=== PATIENT | male | born 1940 | race Two or more races ===

== ENCOUNTER 2022-09-04 13:59 | Inpatient (IN) | payer OTHER ==
[~2022-09-04] VITALS: Ht 172.7 cm; Wt 90.0 kg
[2022-09-04 20:00] VITALS: BP 105/66
[2022-09-04] MEDS ORDERED: MORPHINE SULFATE INJ 2 MG/ml SYRG IV PRN (21:15)
[2022-09-04] MEDS ORDERED: ONDANSETRON HCL 4 MG/2 ML VIAL IV PRN (21:15)
[2022-09-04] MEDS ORDERED: HYDROcodone-ACET 5/325MG TAB PO PRN (21:15)
[2022-09-04] MEDS ORDERED: ACETAMINOPHEN 325 MG TAB PO PRN (21:15)
[2022-09-04 22:00] VITALS: BP 105/66
[2022-09-04 22:35] LABS: INR 1.02 (0.9-1.15)
[2022-09-04] MEDS: SODIUM CHLORIDE 0.9% 1,000 ML IV SCH (23:35)
[2022-09-05 05:00] VITALS: BP 135/63
[2022-09-05 05:27] LABS: Basophils # (auto) 0 10 ^3/uL (0-0.2); Basophils % (auto) 0.3 % (0.0-2.0); Eosinophils # (auto) 0.1 10 ^3/uL (0-0.8); Eosinophils % (auto) 1.8 % (0.0-7.0); Hematocrit 37.2 % (41.0-53.0); Hemoglobin 12.3 g/dL (13.5-17.5); Lymphocytes # (auto) 0.6 10 ^3/uL (0.4-5.4); Lymphocytes % (auto) 8.4 % (10.0-50.0); Mean Corpuscular Hemoglobin 27.5 pg (28.0-32.0); Mean Corpuscular Hgb Conc. 33.2 g/dL (32.0-36.0); Mean Corpuscular Volume 82.8 fL (80.0-100.0); Monocytes # (auto) 0.6 10 ^3/uL (0-1.3); Monocytes % (auto) 8.2 % (0.0-12.0); Neutrophils # (auto) 6.1 10 ^3/uL (1.6-8.6); Neutrophils % (auto) 81.3 % (37.0-80.0); Nucleated Red Blood Cells % 0.1 %; Red Blood Cells 4.49 10^6/uL (4.5-5.90); Red Cell Distribution Width 13.7 % (11.8-14.3); White Blood Cell 7.5 10^3/uL (4.4-10.8)
[2022-09-05 05:46] LABS: BUN/Creatinine Ratio 18.2 (10.0-20.0); Calcium 8.1 mg/dL (8.5-10.1); Potassium 3.5 mmol/L (3.5-5.1)
[2022-09-05] MEDS: SODIUM CHLORIDE 0.9% 1,000 ML IV SCH ×2 (08:09→17:51)
[2022-09-05 08:10] VITALS: BP 143/87
[2022-09-05 08:12] VITALS: BP 135/63
[2022-09-05 12:10] VITALS: BP 165/75
[2022-09-05 16:05] VITALS: BP 164/79
[2022-09-05 22:00] VITALS: BP 135/66
[2022-09-06] VITALS (14 sets, daily range): BP systolic 140–177; BP diastolic 68–85
[2022-09-06] MEDS: SODIUM CHLORIDE 0.9% 1,000 ML IV SCH ×3 (00:38→22:24)
[2022-09-06 05:25] LABS: Basophils # (auto) 0 10 ^3/uL (0-0.2); Basophils % (auto) 0.3 % (0.0-2.0); Eosinophils # (auto) 0.2 10 ^3/uL (0-0.8); Eosinophils % (auto) 2.6 % (0.0-7.0); Hematocrit 35.8 % (41.0-53.0); Lymphocytes # (auto) 0.7 10 ^3/uL (0.4-5.4); Lymphocytes % (auto) 10.4 % (10.0-50.0); Mean Corpuscular Hemoglobin 27.5 pg (28.0-32.0); Mean Corpuscular Hgb Conc. 33.5 g/dL (32.0-36.0); Mean Corpuscular Volume 82.1 fL (80.0-100.0); Monocytes # (auto) 0.8 10 ^3/uL (0-1.3); Monocytes % (auto) 11.7 % (0.0-12.0); Neutrophils # (auto) 5.4 10 ^3/uL (1.6-8.6); Red Blood Cells 4.36 10^6/uL (4.5-5.90); White Blood Cell 7.2 10^3/uL (4.4-10.8)
[2022-09-06 05:39] LABS: Potassium 3.5 mmol/L (3.5-5.1)
[2022-09-06 05:43] LABS: BUN/Creatinine Ratio 17.1 (10.0-20.0); Calcium 7.9 mg/dL (8.5-10.1)
[2022-09-06 07:57] LABS: INR 1.05 (0.9-1.15); Partial Thromboplastin Time 29.9 sec (24.6-33.4)
[2022-09-06] MEDS ORDERED: BUPIVACAINE HCL 0.25% P/F 10 ML VIAL ONE (10:16)
[2022-09-06] MEDS ORDERED: ceFAZolin 1GM/50ML 100 ML IV ONE (11:57)
[2022-09-06 12:11] LABS: Urine Bacteria NONE SEEN /hpf (None Seen); Urine Blood Negative /uL (Negative); Urine Hyaline Cast FEW /lpf (0 - 2); Urine Mucus FEW (None Seen); Urine Specific Gravity 1.022 (1.001-1.035); Urine WBC 1 /hpf (0 - 3)
[2022-09-06] MEDS ORDERED: fentaNYL CITRATE 100 MCG/2 ML VL ONE (12:36)
[2022-09-06] MEDS ORDERED: MORPHINE SULF PF 5 MG/10 ML VIAL ONE (12:36)
[2022-09-06] MEDS ORDERED: MIDAZOLAM HCL 2MG/2ML 2ml VIAL (1mg/ml) ONE (12:37)
[2022-09-06] MEDS ORDERED: PROPOFOL 10 MG/ML 20 ML IV ONE (13:45)
[2022-09-06] MEDS ORDERED: DexAMETHasone SOD PHOS 10MG/1ML VIAL INJ ONE (13:45)
[2022-09-06] MEDS: hydrALAZINE HCL 10 MG TAB PO PRN (17:48)
[2022-09-06] MEDS: ceFAZolin 2 GM/D5W100ml 100 ML IV SCH (20:28)
[2022-09-07] VITALS (24 sets, daily range): BP systolic 129–183; BP diastolic 56–105
[2022-09-07] MEDS: ceFAZolin 2 GM/D5W100ml 100 ML IV SCH ×2 (04:22→12:08)
[2022-09-07 06:30] LABS: Basophils # (auto) 0 10 ^3/uL (0-0.2); Basophils % (auto) 0.1 % (0.0-2.0); Eosinophils # (auto) 0 10 ^3/uL (0-0.8); Eosinophils % (auto) 0.1 % (0.0-7.0); Hematocrit 37.3 % (41.0-53.0); Hemoglobin 12.6 g/dL (13.5-17.5); Lymphocytes # (auto) 0.4 10 ^3/uL (0.4-5.4); Lymphocytes % (auto) 4.4 % (10.0-50.0); Mean Corpuscular Hemoglobin 27.4 pg (28.0-32.0); Mean Corpuscular Hgb Conc. 33.9 g/dL (32.0-36.0); Mean Corpuscular Volume 80.7 fL (80.0-100.0); Monocytes # (auto) 0.8 10 ^3/uL (0-1.3); Monocytes % (auto) 8.5 % (0.0-12.0); Neutrophils # (auto) 8.4 10 ^3/uL (1.6-8.6); Neutrophils % (auto) 86.9 % (37.0-80.0); Nucleated Red Blood Cells % 0.1 %; Red Blood Cells 4.62 10^6/uL (4.5-5.90); Red Cell Distribution Width 13.6 % (11.8-14.3); White Blood Cell 9.6 10^3/uL (4.4-10.8)
[2022-09-07 07:04] LABS: BUN/Creatinine Ratio 20.8 (10.0-20.0); Calcium 8.3 mg/dL (8.5-10.1)
[2022-09-07] MEDS: hydrALAZINE HCL 10 MG TAB PO PRN ×2 (08:22→17:48)
[2022-09-07] MEDS: SODIUM CHLORIDE 0.9% 1,000 ML IV SCH ×2 (09:15→19:15)
[2022-09-08 05:00] VITALS: BP 136/80
[2022-09-08] MEDS: SODIUM CHLORIDE 0.9% 1,000 ML IV SCH ×2 (05:15→15:15)
[2022-09-08 08:30] VITALS: BP 104/52
[2022-09-08 13:00] VITALS: BP 149/98
[2022-09-08 13:47] VITALS: BP 130/65
== END 2022-09-08 16:40 | disposition home health service (06) | DRG 482 ==
LOC: EAST 18:18 → TELE-EAST 21:29
PROVIDERS: ADMIT Internal Medicine; ATTEND Internal Medicine
PROC: 0QS734Z Reposition Left Upper Femur with Internal Fixation Device, Percutaneous Approach (ICD-10-PCS; principal; 2022-09-06 12:45)
DX: S72.002A Fracture of unspecified part of neck of left femur, initial encounter for closed fracture (principal); I10 Essential (primary) hypertension; Z20.822 Contact with and (suspected) exposure to COVID-19; W01.0XXA Fall on same level from slipping, tripping and stumbling without subsequent striking against object, initial encounter; Y93.89 Activity, other specified; Y92.89 Other specified places as the place of occurrence of the external cause; Y99.8 Other external cause status; Z87.442 Personal history of urinary calculi; Z82.49 Family history of ischemic heart disease and other diseases of the circulatory system
CPT/HCPCS: 36415; 71045; 72170; 73502; 74176; 76000; 80048; 81001; 85025; 85610; 85730; 86850; 86900; 86901; 93306; 97110; 97116; 97163; 97530; G0378; J0690; J1100; J2250; J2704; J3490